=== PATIENT | male | born 1995 | race Caucasian/White ===

== ENCOUNTER → 2018-05-19 | Outpatient (CLI) | payer OTHER ==
[~2018-05-19] MED LIST: ACET325 PO; AMOX500 PO; AMOXICILLIN; AZIT200SU PO; Bactrim Ds Tab1 EACH PO; CEPH250SUA PO; CODACEE120 PO; HYDACE5 PO; IBUP200 PO; IBUP600 PO; PENVK500 PO; PRED10 PO; RXCLIN PO; RXCODACESY PO; RXONDA4ODT MM; SILSUL1TC TOP; Veetids 500500 MG PO
[2018-05-21 04:13] LABS: HBSAG SCREEN Negative (Negative); HEP A AB, IGM Negative (Negative); HEP B CORE AB, IGM Negative (Negative); HEP C VIRUS AB >11.0 (0.0-0.9); HIV SCREEN 4TH GENERATION WRFX Non Reactive (Non Reactive)
[2018-05-21 17:08] LABS: CHLAMYDIA TRACHOMATIS, NAA Negative (Negative); NEISSERIA GONORRHOEAE, NAA Negative (Negative)
== END | disposition home or self-care (01) ==
LOC: LAB EV 18:02 → LAB SHORT 18:02
PROVIDERS: Physician Assistant Medical
DX: Z72.51 High risk heterosexual behavior (principal)
CPT/HCPCS: 80074; 86592; 87389; 87491; 87591

== ENCOUNTER 2019-03-05 11:50 | Observation (INO) | payer OTHER ==
[~2019-03-05] VITALS: Ht 175.3 cm; Wt 63.5 kg
--- NOTE | 2019-03-05 15:45 | NUR ---
ADMISSION ASSESSMENT: PT ARRIVED VIA ED GURNEY. SOMEWHAT DROWSY BUT AWAKENS EASILY. MOVES SELF IN BED AND ABLE TO TRANSFER TO BED INDEPENDENTLY WITH STEADY GAIT. PT REPORTS HE IS HOMELESS AND WILL RETURN TO LIVING ON THE STREETS. PT'S SISTER IS AT THE BEDSIDE, DISCUSSING WITH PT THAT HE NEEDS TO CEASE USING DRUGS. PT REPORTS HE USES 1-2 GMS OF HEROINE/DAY AND "A BALL" METH/DAY. PT REPORTS USE EARLER TODAY. PT REPORTS HE SWALLED BOTH HEROINE AND METH (APPROX 2GM HEROINE/1 BALL METH). PT JOKES WITH SISTER, BUT BECOMES EASILY AGGITATED WHEN SOMEONE DISCUSSES HIS DRUG USE, HOWEVER, HE OPENLY TALKS ABOUT HIS DRUG USE AND PRIOR ARREST. REPORTS HE WAS SOBER OFF OF HEROINE/METH FOR APPROX 12 MONTHS AFTER 22 MONTHS IN [facility] AND RELAPSES R/T HANGING OUT WITH HIS PRIOR FRIENDS WHO USE APPROX 3-4 MONTHS AGO. LUNGS ARE CLEAR T/O. HR REGULAR, ST 110-120'S RANGE. SOMEWHAT HYPERTENSIVE UPON ARRIVAL, WILL CONTINUE TO MONITOR. NO VOID YET. -FULL CODE -MONITOR FOR DRUG OVERDOSE -OBSERVE FOR 24 HOURS POST INGESTION OF METH/HEROINE PER POISON CONTROL
--- NOTE | 2019-03-05 16:20 | NUR ---
PT UPDATE: PT'S SISTER COMES OUT OF THE ROOM AFTER PT USED HER PHONE AND REPORTED HER BROTHER WAS WORRIED HE WAS GOING TO BE ARRESTED AFTER HE IS DISCHARGED HOME AND SHE OVERHEARD HIM ASKING A FRIEND TO COME TO THE HOSPITAL TO PICK HIM UP. WILL MONITOR ALL VISITORS.
--- NOTE | 2019-03-05 17:09 | NUR ---
AMA: PT REPORTS HE WILL BE LEAVING LEAVING SHORTLY AMA. DISCUSSED RISKS OF LEAVING, BENEFITS FROM STAYING. PT STATES, "ALL MY STUFF IS AT A THANH'S HOUSE AND IF I DON'T GO PICK IT UP, IT'LL BE GONE." PT NOT WILLING TO STAY. CALLED DR. PADRON AND INFORMED HIM OF PT LEAVING.
--- NOTE | 2019-03-05 17:15 | NUR ---
PT LEFT AMA: PT'S FRIENDS SHOWED BACK UP WITH CLOTHES. PT WAS AGREEABLE WHEN FIRST DISCUSSING HIM LEAVING TO SIGN THE AMA FORM AND ALLOW THIS RN TO TAKE HIS IV OUT. PT FOUND BY TRAIN CLERK UNDOING IVF'S AND STOPPED BY BIANCA KAUR FROM RIPPING OUT HIS IV AGAIN. PT ALLOWED HER TO PROPERLY D/C IV, AND PT LEFT, PRIOR TO SIGNING AMA FORM. PT AMBULATED OFF UNIT WITH HIS FRIENDS.
== END 2019-03-05 17:20 | disposition left against medical advice (07) ==
LOC: ER 11:50 → ICUW 11:51
PROVIDERS: ADMIT Internal Medicine
DX: F11.10 Opioid abuse, uncomplicated (principal); R65.10 Systemic inflammatory response syndrome (SIRS) of non-infectious origin without acute organ dysfunction; F17.210 Nicotine dependence, cigarettes, uncomplicated
CPT/HCPCS: 74018; 99285-25; G0378; J2310

== ENCOUNTER 2019-03-29 01:37 | Emergency (ER) | payer OTHER ==
[~2019-03-29] VITALS: Ht 167.6 cm; Wt 59.0 kg
== END 2019-03-29 02:10 ==
LOC: ER 01:37 → EDBD 01:37 → ER 02:10
DX: F11.10 Opioid abuse, uncomplicated (principal)
CPT/HCPCS: 99283

== ENCOUNTER 2019-04-23 19:21 | Observation (INO) | payer OTHER ==
[~2019-04-23] VITALS: Ht 162.6 cm; Wt 63.5 kg
[2019-04-23 19:45] LABS: BASOPHILS ABSOLUTE AUTO 0.07 K/mm3 (0.00-0.23); BASOPHILS PERCENT AUTO 1 % (0-2); EOSINOPHILS ABSOLUTE AUTO 0.14 K/mm3 (0.00-0.68); EOSINOPHILS PERCENT AUTO 1 % (0-6); Hematocrit 47.5 % (37.0-53.0); Hemoglobin 16.5 g/dL (13.5-17.5); IMMATURE GRAN PERCENT AUTO 2 % (0-1); LYMPHOCYTES ABSOLUTE AUTO 4.51 K/mm3 (0.84-5.20); LYMPHOCYTES PERCENT AUTO 37 % (21-46); MONOCYTES ABSOLUTE AUTO 0.79 K/mm3 (0.16-1.47); MONOCYTES PERCENT AUTO 6 % (4-13); Mean Corpuscular HGB Conc 34.7 g/dL (31.5-36.5); Mean Corpuscular Volume 89 fL (80-100); Mean Platelet Volume 9.2 fL (9.1-12.4); NEUTROPHILS ABSOLUTE AUTO 6.61 K/mm3 (1.96-9.15); NEUTROPHILS PERCENT AUTO 54 % (41-73); Platelet Count 340 K/mm3 (150-400); RDW Coefficient Variation 12.7 % (11.7-14.2); RDW Standard Deviation 41.5 fL (35.1-46.3); Red Blood Cell Count 5.32 M/mm3 (4.30-5.90); White Blood Cell Count 12.32 K/mm3 (4.00-11.30)
[2019-04-23 20:11] LABS: Alanine Aminotransfer (ALT/SGP 82 U/L (12-78); Albumin, Blood 4.3 g/dL (3.4-5.0); Alk Phos 90 U/L (50-136); Anion Gap 15 mmol/L (6-16); Aspartate Aminotrans (AST/SGOT 36 U/L (12-37); Blood Urea Nitrogen 27 mg/dL (8-24); Bun/Creatinine Ratio 20.3 (12.0-20.0); CO2, Blood 20 mmol/L (21-32); Calcium, Blood 9.4 mg/dL (8.5-10.1); Chloride, Blood 102 mmol/L (98-108); Creatinine, Blood 1.33 mg/dL (0.60-1.20); Ethanol (Alcohol), Blood, Med <3 mg/dL; Globulin, Blood 4.1 g/dL (2.2-4.0); Glomerular Filtration Rate >60 (60-); Glucose, Blood 303 mg/dL (70-99); Potassium, Blood 3.8 mmol/L (3.5-5.5); Salicylate <1.7 mg/dL (2.8-20.0); Sodium, Blood 137 mmol/L (136-145); Total Protein, Blood 8.4 g/dL (6.4-8.2)
[2019-04-23 20:18] LABS: Acetaminophen, Random <2.0 ug/mL (10.0-30.0)
[2019-04-23 21:08] LABS: Source, Urine Voided
[2019-04-23 21:14] LABS: Bilirubin, Urine Neg (Neg); Blood, Urine Neg (Neg); Glucose Qualitative, Urine Neg (Neg); Ketones, Urine 1+ (Neg); Leukocyte Esterase, Urine Neg (Neg); Nitrite, Urine Neg (Neg); Protein, Urine 2+ (Neg); Specific Gravity, Urine 1.025 (1.003-1.022); Urobilinogen, Urine 1+ (Normal)
[2019-04-23 21:22] LABS: Appearance, Urine Clear (Clear); Color, Urine Yellow (P-Yellow)
[2019-04-23 21:23] LABS: Amorphous Light (0-Heavy); Bacteria Rare /hpf; Mucus Light (0-Heavy); Red Blood Cells, Urine Not Seen /hpf (0-2); Squamous Epithelial Cells Rare /hpf (Few); White Blood Cells, Urine 0-2 /hpf (0-5)
[2019-04-23 21:30] LABS: U Amphetamine Screen DETECTED; U Barbituate Screen Not Detected; U Benzodiazapine Screen Not Detected; U Buprenorphine Screen Not Detected; U Cannabinoids Screen DETECTED; U Cocaine Screen Not Detected; U Methadone Screen Not Detected; U Methamphetamine Screen Not Detected; U Opiates Screen Not Detected; U Oxycodone Screen Not Detected; U Phencyclidine Screen Not Detected; U Propoxyphene Screen Not Detected
--- NOTE | 2019-04-24 00:21 | NUR ---
PCU ADMIT PT BROUGHT TO PCU RM 11 BY SHASHI FROM THE ER @ 2330. PT ABLE TO STAND AND AMBULATE TO PCU BED INDEPENDENTLY. PT A&O X4. VSS. LUNG SOUNDS CLEAR, SPO2 > 92% ON RA. MONITOR SHOWS NSR, HR 70-90. PT DENIES PAIN/DISCOMFORT OF ANY KIND, PT ALSO DENIES N/V/D. PT REPORTS USING HEROIN AND REPORTS BLOOD SUGAR LEVEL TO BE HIGH BECAUSE "THERE'S BROWN SUGAR IN HEROIN." PT REQUESTING NOTE FROM DOCTOR FOR MISSING WORK AND REQUESTING SNACKS. WILL CONTINUE TO MONITOR AND PROVIDE CARE.
--- NOTE | 2019-04-24 03:44 | NUR ---
PT REQUESTING TO GO OUTSIDE AND SMOKE. PT ADVISED AGAINST SMOKING, BUT NOT BEING DETAINED. PT ENCOURAGED TO REMAIN W/IN SMOKING AREA DIRECTLY OUTSIDE OF HOSPITAL PT ENTRANCE AND ALERT STAFF WHEN BACK IN ROOM. IV FLUIDS ON STANDBY AT THIS TIME.
[2019-04-24 03:52] LABS: BASOPHILS ABSOLUTE AUTO 0.05 K/mm3 (0.00-0.23); BASOPHILS PERCENT AUTO 1 % (0-2); EOSINOPHILS PERCENT AUTO 1 % (0-6); Hematocrit 41.2 % (37.0-53.0); Hemoglobin 14.1 g/dL (13.5-17.5); IMMATURE GRAN ABSOLUTE AUTO 0.06 K/mm3 (0.00-0.10); IMMATURE GRAN PERCENT AUTO 1 % (0-1); LYMPHOCYTES ABSOLUTE AUTO 3.27 K/mm3 (0.84-5.20); LYMPHOCYTES PERCENT AUTO 30 % (21-46); MONOCYTES ABSOLUTE AUTO 1.08 K/mm3 (0.16-1.47); MONOCYTES PERCENT AUTO 10 % (4-13); Mean Corpuscular HGB 31.1 pg (26.0-34.0); Mean Corpuscular HGB Conc 34.2 g/dL (31.5-36.5); Mean Corpuscular Volume 91 fL (80-100); Mean Platelet Volume 8.9 fL (9.1-12.4); NEUTROPHILS ABSOLUTE AUTO 6.43 K/mm3 (1.96-9.15); NEUTROPHILS PERCENT AUTO 59 % (41-73); Platelet Count 248 K/mm3 (150-400); RDW Standard Deviation 42.4 fL (35.1-46.3); Red Blood Cell Count 4.54 M/mm3 (4.30-5.90); White Blood Cell Count 10.99 K/mm3 (4.00-11.30)
[2019-04-24 04:11] LABS: Alanine Aminotransfer (ALT/SGP 67 U/L (12-78); Albumin, Blood 3.5 g/dL (3.4-5.0); Alk Phos 72 U/L (50-136); Anion Gap 5 mmol/L (6-16); Aspartate Aminotrans (AST/SGOT 29 U/L (12-37); Bilirubin, Total 1.6 mg/dL (0.1-1.0); Blood Urea Nitrogen 19 mg/dL (8-24); Bun/Creatinine Ratio 20.3 (12.0-20.0); CO2, Blood 27 mmol/L (21-32); Calcium, Blood 8.5 mg/dL (8.5-10.1); Chloride, Blood 107 mmol/L (98-108); Creatinine, Blood 0.94 mg/dL (0.60-1.20); Globulin, Blood 3.5 g/dL (2.2-4.0); Glomerular Filtration Rate >60 (60-); Glucose, Blood 82 mg/dL (70-99); Potassium, Blood 4.3 mmol/L (3.5-5.5); Sodium, Blood 139 mmol/L (136-145)
--- NOTE | 2019-04-24 05:18 | NUR ---
AMA PT ABSENT FROM ROOM FOR > 1 HR AFTER PT NOTIFIED THIS NURSE OF GOING OUTSIDE TO SMOKE. ATTEMPT TO LOCATE PT OUTSIDE AND INSIDE MADE BY MULTIPLE STAFF MEMBERS W/OUT SUCCESS. NURSING ADVICE CLERK AND MD MUÑIZ NOTIFED OF PT'S ABSENCE.
== END 2019-04-24 05:19 | disposition left against medical advice (07) ==
LOC: ER 19:21 → PCU 22:43
PROVIDERS: Emergency Medicine; ADMIT Internal Medicine
DX: T40.1X1A Poisoning by heroin, accidental (unintentional), initial encounter (principal); F11.20 Opioid dependence, uncomplicated; R73.9 Hyperglycemia, unspecified; N17.9 Acute kidney failure, unspecified; F15.10 Other stimulant abuse, uncomplicated; F17.210 Nicotine dependence, cigarettes, uncomplicated; Z86.19 Personal history of other infectious and parasitic diseases
CPT/HCPCS: 36415; 74018; 80053; 81001; 83036; 84443; 85025; 93005; 93010; 96361; 96372; 96374; 99285-25; G0378; G0480; J1650; J2405; J7030

== ENCOUNTER 2019-05-08 03:42 | Emergency (ER) | payer OTHER ==
[~2019-05-08] VITALS: Ht 162.6 cm; Wt 54.4 kg
== END 2019-05-08 04:00 | disposition home or self-care (01) ==
LOC: ER 03:42
DX: Z88.5 Allergy status to narcotic agent; F17.210 Nicotine dependence, cigarettes, uncomplicated
CPT/HCPCS: 99282

== ENCOUNTER 2019-06-04 13:57 | Emergency (ER) | payer OTHER ==
[~2019-06-04] VITALS: Ht 167.6 cm; Wt 74.8 kg
[2019-06-04 14:30] LABS: BASOPHILS ABSOLUTE AUTO 0.02 K/mm3 (0.00-0.23); BASOPHILS PERCENT AUTO 0 % (0-2); EOSINOPHILS PERCENT AUTO 1 % (0-6); Hematocrit 39.6 % (37.0-53.0); Hemoglobin 14.3 g/dL (13.5-17.5); IMMATURE GRAN ABSOLUTE AUTO 0.02 K/mm3 (0.00-0.10); IMMATURE GRAN PERCENT AUTO 0 % (0-1); LYMPHOCYTES ABSOLUTE AUTO 2.17 K/mm3 (0.84-5.20); LYMPHOCYTES PERCENT AUTO 31 % (21-46); MONOCYTES ABSOLUTE AUTO 0.81 K/mm3 (0.16-1.47); MONOCYTES PERCENT AUTO 12 % (4-13); Mean Corpuscular HGB 31.5 pg (26.0-34.0); Mean Corpuscular HGB Conc 36.1 g/dL (31.5-36.5); Mean Corpuscular Volume 87 fL (80-100); Mean Platelet Volume 9.1 fL (9.1-12.4); NEUTROPHILS ABSOLUTE AUTO 3.89 K/mm3 (1.96-9.15); NEUTROPHILS PERCENT AUTO 55 % (41-73); Platelet Count 228 K/mm3 (150-400); RDW Coefficient Variation 12.4 % (11.7-14.2); RDW Standard Deviation 39.5 fL (35.1-46.3); Red Blood Cell Count 4.54 M/mm3 (4.30-5.90); White Blood Cell Count 7.01 K/mm3 (4.00-11.30)
[2019-06-04 14:55] LABS: Ethanol (Alcohol), Blood, Med <3 mg/dL; Free Thyroxine 1.14 ng/dL (0.70-1.60); Salicylate <1.7 mg/dL (2.8-20.0)
[2019-06-04 14:57] LABS: Alanine Aminotransfer (ALT/SGP 65 U/L (12-78); Albumin, Blood 4.1 g/dL (3.4-5.0); Albumin/Globulin Ratio 1.1 (0.8-1.8); Alk Phos 84 U/L (50-136); Anion Gap 9 mmol/L (6-16); Aspartate Aminotrans (AST/SGOT 32 U/L (12-37); Bilirubin, Total 0.9 mg/dL (0.1-1.0); Blood Urea Nitrogen 13 mg/dL (8-24); Bun/Creatinine Ratio 19.4 (12.0-20.0); CO2, Blood 25 mmol/L (21-32); Calcium, Blood 9.2 mg/dL (8.5-10.1); Chloride, Blood 105 mmol/L (98-108); Creatinine, Blood 0.67 mg/dL (0.60-1.20); Globulin, Blood 3.6 g/dL (2.2-4.0); Glomerular Filtration Rate >60 (60-); Glucose, Blood 132 mg/dL (70-99); Potassium, Blood 3.5 mmol/L (3.5-5.5); Sodium, Blood 139 mmol/L (136-145); Total Protein, Blood 7.7 g/dL (6.4-8.2)
[2019-06-04 14:59] LABS: Acetaminophen, Random <2.0 ug/mL (10.0-30.0)
[2019-06-04] MEDS ORDERED: Catapres0.1 MG PO (18:45)
[2019-06-04] MEDS ORDERED: ONDA4ODT MM (18:45)
== END 2019-06-04 19:25 | disposition home or self-care (01) ==
LOC: ER 13:57
PROVIDERS: Physician Assistant
DX: T40.1X1A Poisoning by heroin, accidental (unintentional), initial encounter (principal); F17.210 Nicotine dependence, cigarettes, uncomplicated; Z88.5 Allergy status to narcotic agent; Z91.048 Other nonmedicinal substance allergy status
CPT/HCPCS: 36415; 80053; 84439; 84443; 85025; 96361; 96374; 99284-25; G0480; J2310; J2405; J7030

== ENCOUNTER 2019-06-28 09:41 | Emergency (ER) | payer OTHER ==
[~2019-06-28] VITALS: Ht 162.6 cm; Wt 68.0 kg
[~2019-06-28 09:41] MED LIST changes: +Catapres0.1 MG PO; +ONDA4ODT MM
== END 2019-06-28 10:05 | disposition left against medical advice (07) ==
LOC: ER 09:41
DX: S59.911A Unspecified injury of right forearm, initial encounter (principal); F17.210 Nicotine dependence, cigarettes, uncomplicated; Z91.048 Other nonmedicinal substance allergy status; Z88.5 Allergy status to narcotic agent; W06.XXXA Fall from bed, initial encounter
CPT/HCPCS: 99283

== ENCOUNTER 2019-06-29 14:37 | Observation (INO) | payer OTHER ==
[~2019-06-29] VITALS: Ht 172.7 cm; Wt 65.2 kg
[2019-06-29 15:15] LABS: BASOPHILS ABSOLUTE AUTO 0.04 K/mm3 (0.00-0.23); BASOPHILS PERCENT AUTO 0 % (0-2); EOSINOPHILS ABSOLUTE AUTO 0.09 K/mm3 (0.00-0.68); EOSINOPHILS PERCENT AUTO 1 % (0-6); Hematocrit 39.8 % (37.0-53.0); Hemoglobin 14.1 g/dL (13.5-17.5); IMMATURE GRAN ABSOLUTE AUTO 0.05 K/mm3 (0.00-0.10); IMMATURE GRAN PERCENT AUTO 1 % (0-1); LYMPHOCYTES ABSOLUTE AUTO 1.84 K/mm3 (0.84-5.20); LYMPHOCYTES PERCENT AUTO 20 % (21-46); MONOCYTES ABSOLUTE AUTO 0.83 K/mm3 (0.16-1.47); MONOCYTES PERCENT AUTO 9 % (4-13); Mean Corpuscular HGB 31.2 pg (26.0-34.0); Mean Corpuscular HGB Conc 35.4 g/dL (31.5-36.5); Mean Corpuscular Volume 88 fL (80-100); Mean Platelet Volume 8.9 fL (9.1-12.4); NEUTROPHILS ABSOLUTE AUTO 6.24 K/mm3 (1.96-9.15); NEUTROPHILS PERCENT AUTO 69 % (41-73); Platelet Count 289 K/mm3 (150-400); RDW Coefficient Variation 12.2 % (11.7-14.2); RDW Standard Deviation 39.7 fL (35.1-46.3); Red Blood Cell Count 4.52 M/mm3 (4.30-5.90); White Blood Cell Count 9.09 K/mm3 (4.00-11.30)
[2019-06-29 15:41] LABS: Alanine Aminotransfer (ALT/SGP 93 U/L (12-78); Albumin, Blood 4.3 g/dL (3.4-5.0); Albumin/Globulin Ratio 1.1 (0.8-1.8); Alk Phos 79 U/L (50-136); Anion Gap 9 mmol/L (6-16); Aspartate Aminotrans (AST/SGOT 41 U/L (12-37); Bilirubin, Total 1.5 mg/dL (0.1-1.0); Blood Urea Nitrogen 14 mg/dL (8-24); Bun/Creatinine Ratio 15.9 (12.0-20.0); CO2, Blood 23 mmol/L (21-32); Calcium, Blood 9.4 mg/dL (8.5-10.1); Chloride, Blood 104 mmol/L (98-108); Creatinine, Blood 0.88 mg/dL (0.60-1.20); Ethanol (Alcohol), Blood, Med <3 mg/dL; Globulin, Blood 3.8 g/dL (2.2-4.0); Glomerular Filtration Rate >60 (60-); Glucose, Blood 108 mg/dL (70-99); Potassium, Blood 3.6 mmol/L (3.5-5.5); Salicylate <1.7 mg/dL (2.8-20.0); Sodium, Blood 136 mmol/L (136-145); Total Protein, Blood 8.1 g/dL (6.4-8.2)
[2019-06-29 15:56] LABS: Acetaminophen, Random <2.0 ug/mL (10.0-30.0)
[2019-06-29 17:36] LABS: Source, Urine Voided
[2019-06-29 17:42] LABS: Appearance, Urine Clear (Clear); Bilirubin, Urine Neg (Neg); Blood, Urine 1+ (Neg); Color, Urine Yellow (P-Yellow); Glucose Qualitative, Urine Neg (Neg); Ketones, Urine 3+ (Neg); Leukocyte Esterase, Urine Neg (Neg); Nitrite, Urine Neg (Neg); Protein, Urine 2+ (Neg); Specific Gravity, Urine 1.015 (1.003-1.022); Urobilinogen, Urine 1+ (Normal); pH, Urine 6.5 (5.0-8.0)
--- NOTE | 2019-06-29 18:00 | NUR ---
MONITORING PT AT BEDSIDE. PT COMPLAINS OF A DULL STOMACH ACHE, NOT ALLOWING ASSESSMENT BY NURSING STAFF, STS HE WANTS TO TAKE A NAP. PT REQUESTING FAMILY (UNCLE AND MOTHER) AT BEDSIDE, INFORMED PT FAMILY MEMBERS WOULD BE ALLOWED IN THE ROOM SOON THEY ARRIVE. PT DECLINES TO ANSWER MANY QUESTIONS FROM NURSING STAFF, CONTINUES TO ASK TO SEE/CALL FAMILY MEMBERS. PT IN ROOM LISTENING TO OTHER COVERSATIONS, BELEIVES OTHER STAFF MEMBERS ARE TALKING ABOUT HIM AND THINKS THE VOICES OF OTHER STAFF MEMBERS ARE THOSE OF HIS FRIENDS/FAMILY. PT ASKS TO HAVE HIS OXYGEN TURNED OFF, STATES IT IS MAKING HIS HR SPEED UP, INFORMED PT HE IS NOT CURRENTLY ON OXYGEN.
[2019-06-29 18:11] LABS: U Amphetamine Screen DETECTED; U Barbituate Screen Not Detected; U Benzodiazapine Screen Not Detected; U Cannabinoids Screen DETECTED; U Cocaine Screen Not Detected; U Methadone Screen Not Detected; U Methamphetamine Screen Not Detected; U Opiates Screen Not Detected
[2019-06-29 18:12] LABS: U Buprenorphine Screen Not Detected; U Oxycodone Screen Not Detected; U Phencyclidine Screen Not Detected; U Propoxyphene Screen Not Detected
[2019-06-29 18:14] LABS: Bacteria Rare /hpf; Squamous Epithelial Cells Rare /hpf (Few); White Blood Cells, Urine 0-2 /hpf (0-5)
--- NOTE | 2019-06-29 18:45 | NUR ---
TELEPSYCH ENDED, PT REQUESTS TO TAKE A NAP.
--- NOTE | 2019-06-29 19:51 | NUR ---
POISON CONTROL CONTACTED CHART INITIATED REGARDING PT'S OD ATTEMPT, WELL INFORMATION FAXED OVER REGARDING NARCAN GUIDELINES R/T HEROIN INTAKE. RECOMMENDATIONS TO STAY IN ICU WITH CARDIAC MONITORING FOR AT LEAST 24 HOURS.
--- NOTE | 2019-06-29 22:39 | NUR ---
ASSUMED PT CARE AT 1915 FROM ELLI HAYS PT LYING IN BED VERY DIAPHORETIC. TEMP 98.0. PT IS RESPONDING TO VERBAL STIMULI, BUT CONFUSED AND FORGETFUL OF EVENT. BELIEVES HE IS IN [place] AND DOES NOT RECALL THE YEAR. PT STATES HE IS STILL SUICIDAL AND STILL PLANS ON CARRYING THROUGH WITH THESE ACTIONS. PT REMAINS HIGH RISK FOR SUICIDE AND REMAINS A ONE ON ONE OBSERVATION. NOTED TO BE SINUS TACHYCARDIC WITH HR 120-140'S. SBP 140'S. PT CONTINUES TO HAVE VISUAL AND AUDITORY HALLUCINATIONS. HE IS ALSO NOTED TO BE PARANOID. CONTINUES TO ASK FOR "PAPERWORK" THAT WAS SIGNED IN ER. ASKING THAT HE HAVE THAT PAPERWORK IT IS HIS RIGHT. INFORMED PT THAT WE ARE UNAWARE OF WHAT "PAPERWORK" HE SIGNED IN ER. FAMILY FRIEND STOPPED BY TO VISIT PT. INFORMED VISITOR THAT SHE COULD SAY HI AND BYE, BUT THE VISIT NEEDED TO REMAIN SHORT. VISITOR IN ROOM FOR APPROXIMATELY 15 MINUTES AND ASKED ABOUT THE "PAPER" THAT PT SIGNED IN ER ALSO. INFORMED VISITOR THAT WE DON'T HAVE ANY "PAPERWORK" THAT HE MAY HAVE SIGNED IN ER AND THAT HE WOULD NEED TO REQUEST TO SEE HIS MEDICAL RECORD THROUGH [facility]; VISITOR DEMONSTRATED UNDERSTANDING. NOTED PT'S PARANOIA WAS STARTING TO INCREASE; THEREFORE, ASKED VISITOR TO LEAVE. VISITOR ASKED FOR A NUMBER TO CALL; GAVE DEPARTMENT CARD, BUT ALSO INFORMED VISITOR THAT SINCE PT ISN'T ORIENTED TO GIVE US INFORMATION TO WHO WE CAN GIVE INFO OUT TO OVER THE PHONE, SHE WOULD NEED TO CONTACT HIS MOTHER IN ORDER TO GET THAT PERMISSION. PT ALSO CONTINUES TO ASK TO KEEP CALLING HIS MOM. INFORMED HIM THAT HIS MOTHER IS AWARE THAT HE IS HERE, BUT HE IS UNSAFE TO HAVE A PHONE IN HIS ROOM WITH HIS ACTIVE IDEATION OF SUICIDE. PT CONTINUES TO LIE IN BED WITH CALL LIGHT IN REACH WITH ONE ON ONE OBSERVATION.
--- NOTE | 2019-06-30 02:04 | NUR ---
POISON CONTROL CALLED FOR AN UPDATE
[2019-06-30 03:50] LABS: Anion Gap 9 mmol/L (6-16); Blood Urea Nitrogen 15 mg/dL (8-24); CO2, Blood 22 mmol/L (21-32); Calcium, Blood 8.7 mg/dL (8.5-10.1); Chloride, Blood 110 mmol/L (98-108); Creatinine, Blood 0.65 mg/dL (0.60-1.20); Glomerular Filtration Rate >60 (60-); Glucose, Blood 76 mg/dL (70-99); Potassium, Blood 3.7 mmol/L (3.5-5.5); Sodium, Blood 141 mmol/L (136-145)
--- NOTE | 2019-06-30 05:07 | NUR ---
END OF SHIFT SUMMARY PT REMAINS PARANOID. HE BELIEVES THE CHIMNEY CONSTRUCTION SUPERVISOR ARE GOING TO ARREST HIM TO WHY HE KEEPS ASKING FOR A COPY OF THE "PAPERWORK" HE SIGNED IN ER R/T HIS HIPAA RIGHTS. REASSURED PT THAT NO ONE WAS VIOLATING HIS HIPAA RIGHTS AND THAT THE CHIMNEY CONSTRUCTION SUPERVISOR ARE NOT GOING TO COME IN AND ARREST HIM. PT REMAINS PARANOID REGARDING HAVING TO USE THE RESTROOM; REASSURED PT THAT WE AREN'T GOING TO SHARE ANY OF HIS MEDICAL HX WITH THE CHIMNEY CONSTRUCTION SUPERVISOR. PT ATTEMPTED TO STAND AT BEDSIDE TO VOID; UNSUCCESSFUL; BLADDER SCANNED PT WITH OVER 1000 NOTED TO BLADDER. PT STATED HIS BLADDER FELT FULL, BUT HE WASN'T ABLE TO "PEE". STATED HE ALSO HAD TO GET STRAIGHT CATHED IN ED UPON ARRIVAL TO HOSPITAL. THEREFORE, PLACED INDWELLING MICHAELS CATHETER AND DRAINED 950CC. UA SENT TO LAB. CALL LIGHT WITHIN REACH; PT REMAINS A 1:1 WITH SITTER. ABLE TO MAKE NEEDS KNOWN. WILL CONTINUE TO MONITOR UNTIL REPORT IS HANDED OFF TO ONCOMING RN.
--- NOTE | 2019-06-30 07:20 | NUR ---
BEGINNING OF SHIFT Assumed care at 0700. Bedside report received from Yaz CALLOWAY. Pt laying in bed, alert and oriented. Cooperates with staff. Remains high risk for suicide. Pt's main concern is that he hasn't slept for several days. Pt on room air. Sinus rhythm per monitor. RR 16-20. Bed in lowest position. Call light in reach. Pt denies need at this time.
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
--- NOTE | 2019-06-30 07:42 | NUR ---
ANXIETY Pt laying in bed, agitated and restless. Requests "something for anxiety" this RN educates pt that anxiety medication is not a safe choice due to the substances he reports injesting. Pt tossing and turning in bed, repeatedly yelling profanities because he cannot get comfortable. This RN adjusted matress firmness for pt several times.
[2019-06-30 08:16] LABS: Source, Urine Catheter
[2019-06-30 08:20] LABS: Bilirubin, Urine Neg (Neg); Blood, Urine 4+ (Neg); Glucose Qualitative, Urine Neg (Neg); Ketones, Urine 4+ (Neg); Leukocyte Esterase, Urine Neg (Neg); Nitrite, Urine Neg (Neg); Protein, Urine Neg (Neg); Specific Gravity, Urine 1.025 (1.003-1.022); Urobilinogen, Urine NORM (Normal)
[2019-06-30 08:33] LABS: Appearance, Urine Clear (Clear); Bacteria Not Seen /hpf; Color, Urine Yellow (P-Yellow); Squamous Epithelial Cells Not Seen /hpf (Few); White Blood Cells, Urine Not Seen /hpf (0-5)
--- NOTE | 2019-06-30 08:49 | NUR ---
UPDATE Pt continues to request "something for anxiety". This RN again attempts to reeducate pt. Pt given phone to call family members per pt request. This RN at bedside during phone calls. Pt verbalizes expectation that he will be discharged soon. Pt educated that he has not been seen by the provider yet and there are no plans for discharge.
--- NOTE | 2019-06-30 09:18 | NUR ---
AGITATION Pt irritable. States discontent that provider has not been in to see him yet. Pt asks questions "Can you tell me if there is a warrant out for me?" and "Am I gonna go to [facility]?" Pt educated that this RN does not have this information. Pt states that he wants to go to rehab.
--- NOTE | 2019-06-30 09:24 | NUR ---
POISON CONTROL CENTER Called for update. No new recommendations at this time. States benzodiazepines would be appropriate if pt has increasing agitation, diaphoresis, or hyperthermia.
--- NOTE | 2019-06-30 09:33 | NUR ---
BEHAVIORAL HEALTH Jing from behavior health speaking with patient at this time. Plan of care discussed with Salud from case management. Notified that pt stated desire to go to rehab.
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
--- NOTE | 2019-06-30 10:33 | NUR ---
UPDATE Dr Burton in to see pt. She would like update when pt is done speaking to Dr De La Cruz. Pt has spoken with Salud from care management. Pt states if he is discharged to rehab, he prefers [facility] to [facility]. Pt requests phone to call his mother. Pt has spoke to mother at least two times this morning. This RN encouraged pt to wait to talk to his mother after Dr De La Cruz sees him. Pt agreeable.
--- NOTE | 2019-06-30 11:00 | NUR ---
CALL PLACED TO DR TRIPP Pt wants to walk around room. Iquired if okay to take pt off heart monitor and DC fluids. Provider states that pt may be temporarily taken off heart monitor.
--- NOTE | 2019-06-30 11:04 | NUR ---
DR WALDEN IN ROOM
--- NOTE | 2019-06-30 11:57 | NUR ---
HOLD 2 MD HOLD INITIATED PER ORDERS FROM DR WALDEN. PT IN ROOM VISITING WITH HIS STEP DAD, "NICHELLE". PT VERBALIZES UNDERSTANDING OF 2 MD HOLD.
--- NOTE | 2019-06-30 12:11 | NUR ---
LUNCH This RN brings lunch into pt's room. Pt continues to visit with step-dad. Pt inquires "What if I didn't actually eat heroin? What if I just made it look like I did." This RN educates pt that this would not change his course of treatment and we will continue to plan for discharge to rehab.
--- NOTE | 2019-06-30 13:30 | NUR ---
CHANGE IN SUICIDE RISK/PRECAUTIONS Pt no longer suicide risk per [place] Suicide Severity Rating Scale. Dr Annuff aware. Provider wants pt to remain on moderate-risk suicide precautions. Call placed to Dr Burton. Pt okay for medical floor status. Pt okay to not have IV access. Pt inquires if he is allowed to go outside and smoke. This RN tells pt he may not do this, as ICU is a closed unit.
--- NOTE | 2019-06-30 15:08 | NUR ---
UPDATE Pt in room, restless, but pleasant and cooperative with staff. Snacks given per pt request. Pt ambulated around unit with this RN. Steady on feet. Independent in room.
--- NOTE | 2019-06-30 16:00 | NUR ---
VISITORS Two visitors in to see pt. Notified that personal belongings may not be brought into room. Without hesitation, both visitors left belongings (purse, cellphone) on table outside of room.
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
--- NOTE | 2019-06-30 17:15 | NUR ---
RESTRICTIONS Visitors asked to leave by Valorie CALLOWAY after report from central monitoring that visitor handed pt item from her shirt. Patient states "It was her phone. I took it under the covers to take a picture of something and then I gave it back to her". This RN notified pt that due to violation of rules, visitors bringing outside items into room, that this RN would not allow visitors into the ICU to see pt for remaintder of shift. Pt verbalizes understanding of restrictions.
--- NOTE | 2019-06-30 19:34 | NUR ---
SUMMARY This RN assisted pt to take shower. No additional issues since last note. Pt is pleasant and cooperative with nursing staff. A&O x 4. Denies need at this time. Report given to Francine CALLOWAY.
--- NOTE | 2019-06-30 20:12 | NUR ---
CARE ASSUMED CARE ASSUMED AFTER BEDSIDE REPORT FROM ELLI WILLIAMSON AT 1900. PT ALERT, CALM AND COOPERATIVE. VITALS STABLE. PT REQUESTING USE OF PHONE. PHONE PROVIDED. VERIFIED WITH REMOTE MONITORING THAT PT IS ON CAMERA AND THAT THEY ARE ABLE TO SEE PATIENT SUFFICIENTLY. PT REPORTS HIS BACK HURTS BECAUSE, "I AM COMING DOWN STILL." STATES IT TAKES SEVERAL DAYS WHEN HE HASN'T DONE IT FOR AWHILE. PT STATES HE IS HOPEFUL TO GO TO INPATIENT TREATMENT BECAUSE, "I WAS CLEAN FOR THREE WEEKS, AND THREE DAYS AFTER TREATMENT USED AGAIN. I DON'T WANT TO MESS UP AGAIN." PT ALSO EXPAINS THAT EARLIER TODAY HIS VISITORS BROUGHT HIM A VAPE PEN. PT AWARE OF 2 MD HOLD AND RESTRICTIONS, AGREES TO CALL FOR NEEDS.
--- NOTE | 2019-07-01 06:32 | NUR ---
SUMMARY PT HAS SLEPT MAJORITY OF NIGHT, AROUSING EASILY FOR REASSESSMENTS AND TO MAKE NEEDS KNOWN. PT HAS DENIED SUICIDAL IDEATION. VITALS STABLE. CONTINOUS REMOTE MONITORING WITHOUT INCIDENCE.
--- NOTE | 2019-07-01 08:19 | NUR ---
ASSUMED CARE RECEIVED REPORT FROM ELLI ORNELAS. PT IS ON MODERATE SUICIDE PRECAUTIONS, BEING MONITORED VIA CAMERA. PT IS AWAKE IN BED, ALERT. PT CURRENTLY IS CALM AND COOPERATIVE, ASKING TO MAKE A PHONE CALL. HE IS ON ROOM AIR, AND HAS STABLE VITALS. BED IS LOW AND LOCKED. AND CALL LIGHT WITHIN REACH.
--- NOTE | 2019-07-01 12:00 | NUR ---
INPATIENT FACILITY: PT HAS BEEN IN THE ROOM MAKING NUMEROUS PHONE CALLS AFTER TALKING WITH THE SENIOR CASE MANAGER AND DR WALDEN. WHILE THIS RN IS IN THE ROOM PT IS NOTED TO BE TALKING TO, WHO HE STATES IS AN INPATIENT FACILITY. AFTER THE PT GETS OFF THE PHONE THE PT ASKS FOR A PHONE NUMBER FOR ANOTHER FACILITY. THIS RN EDUCATES THE PT ON THE CARE MANAGERMENT/CASE WORKERS RESPONSIBILITIES AND ASSURES THE PT THEY WILL FIND HIM A FACILITY TO GO TO. TOLD PT TO STOP CALLING FACILITIES AT THIS TIME BECAUSE THERE IS A SPECIFIC PROCESS IN WHICH NEEDS TO BE FOLLOWED D/T BEING ON A HOLD AND NEEDING INPATIENT CARE.
--- NOTE | 2019-07-01 12:45 | NUR ---
VISITORS: TALKED WITH PT ABOUT SITUATION THE PREVIOUS DAY WITH VISITORS. PT STATES "IT WAS A VAPE PEN" THAT WAS PROVIDED THE PREVIOUS DAY BY HIS GIRLFRIEND. CONTINUES TO STATING ANXIETY AND FEELING ANTSY REQUESING TO WALK OR GO OUTSIDE. PT EDUCATED HE WILL HAD NOT BE ALLOWED TO GO OUTSIDE AND EVEN WITH TRANSFER TO ANOTHER UNIT HE WILL HAVE A VERY SMALL AREA IN WHICH HE CAN MOVE ABOUT. A FULL CONVERSATION ABOUT WHAT HAS LED UP TO THE PT BEING IN THE HOSPITAL AND PREVIOUS ADMISSIONS AT INPATIENT FACILITIES. PT REQUESTS VISITORS. THIS RN STATES ONE VISITOR AT A TIME WILL BE ALLOWED, BUT THE VISITOR FROM THE PREVIOUS DAY MIKE WILL NOT BE ALLOWED. NOTES PLACED T/O THE UNIT AT DOOR BELLS. EDUCATED THE PT IF ANY FURTHER INCEDENCE OCCURES SECURITY WILL BE CALLED AND VISITOR PRIVLIDGES WILL BE REVOEKED.
--- NOTE | 2019-07-01 14:00 | NUR ---
PHONE: PT PHONE IS REMOVED FROM THE ROOM AT THIS TIME. PT CONTINUES TO BE ON THE PHONE AND APPEARS TO BECOMING MORE AND MORE AGITATED ALONG WITH ANTSY.
--- NOTE | 2019-07-01 19:38 | NUR ---
SHIFT SUMMARY: PT HAS BEEN VERY ANXIOUS AND ANTSY T/O THE DAY. AFTER THE PHONE WAS REMOVED FROM THE ROOM AND PT WAS TOLD HE NEEDED TO NO LONGER CALL ANY FACILITIES REGUARDING INPATIENT CARE PT SAT BACK AND WATCHED TV AND SLEPT FOR PART OF THE DAY. PT HAS BEEN COOPERATIVE AND FOLLOWING DIRECTION. REPORT GIVEN TO ONCOMING RN.
--- NOTE | 2019-07-02 06:38 | NUR ---
SUMMARY PT HAS BEEN UP IN ROOM, TALKING ON PHONE, VISITING WITH VISITORS OR REQUESTING SNACKS MAJORITY OF THE SHIFT. WITHIN THE LAST FEW HOURS PT HAS TURNED ON TELEVISION AND LAYED IN BED TO REST. PT CALM, COOPERATIVE WITH CARES. VITALS STABLE.
--- NOTE | 2019-07-02 09:30 | NUR ---
INITIAL ASSESSMENT PATIENT ALERT AND ORIENTED X 4, AFEBRILE. PATIENT ANXIOUS AT TIMES, BUT COOPERATIVE. PATIENT INDEPENDENT IN ROOM. PATIENT HAS NO COMPLAINTS OF PAIN. PATIENT SATTING 90% AND GREATER ON RA. LUNGS CLEAR. HR IN THE 90S. BP STABLE. LAST BM TODAY. PATIENT STATES HE HAS BEEN HAVING LOOSE STOOLS. GOOD APPETITE. WNL. SOME SCATTERED ABRASIONS NOTED TO BUES. NO IV ACCESS NEEDED. WILL CONTINUE TO MONITOR PATIENT FREQUENTLY THROUGHOUT SHIFT.
--- NOTE | 2019-07-02 12:08 | NUR ---
PATIENT RESTING QUIETLY IN BED WITH NO COMPLAINTS. NO ACUTE CHANGES TO NOTE ON. WILL CONTINUE TO MONITOR.
--- NOTE | 2019-07-02 13:29 | NUR ---
REPORT TO MED: REPORT GIVEN TO FATUMA ON MEDICAL FLOOR. ROOM IS NOT CLEAN AT THIS TIME. AWAITING CALL STATING ROOM IS CLEAN
--- NOTE | 2019-07-02 13:33 | NUR ---
REPORT GIVEN TO ASSUMING MEDICAL FLOOR NURSE. PATIENT WILL BE TRANFERRING SHORTLY TO 347.
--- NOTE | 2019-07-02 13:56 | NUR ---
PATIENT BEING TAKEN TO MEDICAL FLOOR, ROOM 347 AT THIS TIME.
--- NOTE | 2019-07-02 16:34 | NUR ---
SHIFT SUMMARY/TRANSFER NOTE PT TRANSFERED FROM ICU. DR. FATIMA IS CONSULTING. SUICIDAL OVERDOSE WAS ADMITTING DIAGNOSIS. AWAITING INPATIENT PLACEMENT FOR PSYCH. PT IS A&O X4, INDEPENDENT IN ROOM. VERIFIED VIDEO MONITORING IS IN PLACE AND ACTIVE. PT TRANSFERED TO FLOOR, ORIENTED TO UNIT. RECEIVED HANDOFF FROM ED NURSE ALVARO. ENVIRONMENTAL RISK ASSESSMENT COMPLETED.
--- NOTE | 2019-07-02 20:11 | NUR ---
VERIFIED REMOTE CAMERA MONITORING WITH JOSEP. Pt ALERT COOPERATIVE WITH STEP FATHER AT BEDSIDE. APPROPRIATE INTERACTION. GOOD APPETITE. CONTINUE WITH MODERATE RISK SUICIDE PRECAUTIONS AFTER SWALLOWING METH AND HEROIN PACKETS WHEN FACED WITH ARREST PER REPORT.
--- NOTE | 2019-07-02 21:07 | NUR ---
continues on camera monitoring after swallowing heroin planning inpt psych tx on dc cooperative.
--- NOTE | 2019-07-03 05:05 | NUR ---
24 year old Male who recently completed substance abuse treatment and relapsed with meth use and he intentally od on 6 oxycontin and 2 grams heroin that he swallowed. He is on probation and said he will be released off probation in 8 days despite using meth heroin and prescription rx not belonging to him. He is cooperative and denies any plan for self harm. He is on 2 MD hold after serious suicide attempt. Says he has been using heroin x 2 years. No s/sx of acute withdrawl. Step Father in earlier appears very young. PT says he plans on moving out of state when he is off probation. Appears to lack insight into need to stay off drugs despite supervision by probation dept. Reportedly homeless. Slightly tachycardic pulse up to 118. Tolerating diet and activity. Continous camera monitoring on moderate to low suicide precautions. InPT psych recommended at [place] by DR De La Cruz
--- NOTE | 2019-07-03 07:30 | NUR ---
CONFIRMED WITH REMOTE MONITORS THAT PT IS ON CAMERA.
--- NOTE | 2019-07-03 09:05 | NUR ---
DR LOPEZ IN TO SEE PT.
--- NOTE | 2019-07-03 17:34 | NUR ---
PT IS POLITE AND COOPERATIVE. PT DENIES ANY SI. DISCUSSED WITH THE PT WHAT HAD HAPPENED BEFORE COMING TO THE HOSPITAL PT STATED THAT HE HAD RELAPSED AND DONE METH HE SAID THAT HE WAS PARANOID AND WORRIED ABOUT GOING BACK TO INTERMEDIATE. HE SAID THAT HE DID NOT EAT ANY HEROIN, OR OTHER DRUGS HE JUST SAID THAT TO GET OUT OF GOING TO INTERMEDIATE. HE EXPRESSES REGRET IN SAYING THAT AND SAID HE REALIZES THAT WAS NOT A GOOD WAY OF GETTING OUT OF TROUBLE. PT STEPFATHER VISITED MOST OF THE DAY. HE WAS CUDDLING IN BED WITH THE PT. I ASK PT PRIVETLY IF THE PT WAS UNCOMFORTABLE WITH HIS GUEST. HE SAID THAT THEY WERE BEST FRIENDS AND THAT HE WAS COMFORTABLE WITH THE AFECTION. I ASKED IF HE WAS COMFORTABLE WITH DISCUSSING HIS DIAGNOSIS INFRONT OF HIS FAMILY.
--- NOTE | 2019-07-04 04:30 | NUR ---
SHIFT SUMMARY NO ACUTE CHANGES TO REPORT. PT STEP FATHER VISITED WITH PT A FEW HOURS INTO THE SHIFT. PT HAS BEEN PLESANT AND COOPERATIVE CARE. TOOK A SHOWER THIS SHIFT, AND HAS REQUESTED SNACKS T/O THE NIGHT. PT HAS BEEN INDPENDENT IN THE ROOM. VITALS STABLE. SI PRECAUTIONS IN PLACE. PT DENIES ANY PLANS OF SUICIDE THIS SHIFT. RESTFUL NIGHT. WILL CONTINUE TO MONITOR AND REPORT TO ONCOMING RN.
--- NOTE | 2019-07-04 16:52 | NUR ---
PT CALM AND COOPERATIVE. PT DENIES ANY THOUGHTS OF SUICIDE. PT'S STEPFATHER VISITED TODAY. PT PROVIDED SNACKS. ATE AND DRANK WELL
--- NOTE | 2019-07-05 04:36 | NUR ---
SHIFT SUMMARY PT HAD TWO VISITORS FOR A FEW HOURS INTO THE SHIFT. THEY LEFT AROUND 11 PM. THEY WERE ASKED TO LEAVE SO THAT PT COULD REST. PT SHANNA LANCASTER LEFT AT 11PM AND RETURNED AROUND 11:30 PM. THE PT STEP FATHER QUESTIONED CHARGE NURSE REGARDING 2 MD HOLD AND COULD NOT UNDERSTAND WHY PT WAS COMMITTED AND COULD NOT LEAVE ON HIS OWN FREE WILL. CHARGE NURSE EXPLAINED THE REASON, BUT HE HAD DIFFICULTY GRASPING THE REASONS BEHIND A 2 MD HOLD. PT STEP FATHER ALSO BECAME UPSET WITH ME WHEN I ASKED HIM NOT TO BRING HIS BACKPACK INTO THE ROOM. PT RESTS MOST OF THE NIGHT AFTER HIS VISITORS LEAVE, HE REQUESTS SNACKS OFTEN DURING THE SHIFT. PT DENIES SUICIDAL IDEATION. SI PRECAUTIONS IN PLACE. PT PLESANT WITH CARE. PLANS FOR DC POSSIBLY TODAY. WILL CONTINUE TO MONITOR AND REPORT TO ONCOMING RN.
--- NOTE | 2019-07-05 07:17 | NUR ---
ASSUMED CARE OF PT- BEDSIDE REPORT COMPLETED WITH NIGHT ELLI PAYNE. PT ADMITTED FOR OVERDOSE WITH SI. PT TOLD NIGHT RN THAT HE REGRETS SWALLOWING THE BAG OF DRUGS, HE "JUST DIDN'T WANT TO GO TO INTERMEDIATE." PT HAS A VISITOR THAT STATES HE IS THE PT STEP FATHER THAT LAYS IN BED WITH HIM AND CUDDLES (PER REPORT). VISITOR BECAME UPSET THAT HE WAS NOT ABLE TO BRING HIS BAG IN THE PT ROOM, PT ON 2MD HOLD WITH MODERATE SUICIDE PRECAUTIONS.
--- NOTE | 2019-07-05 12:01 | NUR ---
PT APPEARS ALERT AND ORIENTED STATED HE REGRETS TELLING PEOPLE HE WAS DELIBERATELY TRYING TO OVERDOSE. PT STATED THIS WAS NOT HIS INTENTION, HE WAS AFRAID THAT THEY WERE GOING TO TAKE HIM BACK TO ASSISTED.
[2019-07-05] MEDS ORDERED: Seroquel Xr50 MG PO (13:23)
--- NOTE | 2019-07-05 14:42 | NUR ---
DISCHARGE NOTE- PT WAS PROVIDED WITH A LIST OF COMMUNITY RESOURCES. PT WAS SEEN BY DR WALDEN WHO DC'D THE TWO MD HOLD PT SI EVALUATION WAS NEGATIVE THIS MORNING. PT WAS DISCHARGED HOME. PT WAS GIVEN VERBAL AND WRITTEN DISCHARGE INSTRUCTIONS, DECLINED ANY ESCORT AND LEFT UNDER HIS OWN POWER. PT HAD NO S&S OF DISTRESS AT THE TIME OF DISCHARGE. NO IV WAS IN PLACE AT THAT TIME.
== END 2019-07-05 13:45 | disposition home or self-care (01) ==
LOC: ER 14:37 → ICUW 14:38 → MEDS 07-02 13:58
PROVIDERS: Emergency Medicine; Internal Medicine; Nurse Practitioner Acute Care; ADMIT Internal Medicine
DX: T40.2X2A Poisoning by other opioids, intentional self-harm, initial encounter (principal); T40.1X2A Poisoning by heroin, intentional self-harm, initial encounter; F39 Unspecified mood [affective] disorder; F11.121 Opioid abuse with intoxication delirium; F15.10 Other stimulant abuse, uncomplicated; F05 Delirium due to known physiological condition; F12.10 Cannabis abuse, uncomplicated; F32.9 Major depressive disorder, single episode, unspecified; F17.210 Nicotine dependence, cigarettes, uncomplicated; Z87.19 Personal history of other diseases of the digestive system; Z88.5 Allergy status to narcotic agent
CPT/HCPCS: 36415; 51700; 51701; 51702; 71046; 74018; 80048; 80053; 81001; 84443; 85025; 93005; 93010; 96360-59; 96361; 96361-59; 99285-25; G0378; G0480; J7030